=== PATIENT | female | born 1990 | race Two or more races ===

== ENCOUNTER 2020-05-25 13:47 | Emergency (ER) | payer BC, OTHER ==
[~2020-05-25] VITALS: Ht 157.5 cm; Wt 99.8 kg
[2020-05-25] MEDS ORDERED: DexAMETHasone SOD PHOS 10MG/1ML VIAL INJ IM ONE (14:45)
[2020-05-25] MEDS ORDERED: cefTRIAXone SOD 1,000 MG VL IM ONE (14:45)
[2020-05-25] MEDS ORDERED: BAMLANIVIMAB 700MG/200ML 200 ML IV ONE (17:00)
[2020-05-25 19:17] VITALS: BP 133/78
== END 2020-05-25 19:09 | disposition home or self-care (01) ==
LOC: ER 13:47
DX: U07.1 COVID-19 (principal); J45.21 Mild intermittent asthma with (acute) exacerbation
CPT/HCPCS: 71045; 96372; 99284; J0696; J1100; M0239; Q0239

== ENCOUNTER → 2020-06-02 | Emergency (ER) | payer BC ==
[~2020-06-02] VITALS: Ht 160 cm; Wt 99.8 kg
[2020-06-02 16:20] VITALS: BP 118/68
== END | disposition home or self-care (01) ==
LOC: ER 15:57
DX: U07.1 COVID-19 (principal); J12.82 Pneumonia due to coronavirus disease 2019; F41.9 Anxiety disorder, unspecified; J45.909 Unspecified asthma, uncomplicated
CPT/HCPCS: 71045

== ENCOUNTER 2020-06-28 11:59 | Emergency (ER) | payer BC ==
[~2020-06-28] VITALS: Ht 157.5 cm; Wt 95.3 kg
[2020-06-28] MEDS ORDERED: methylPREDNISolone SOD SUCC 125 MG/2 ML VL IV ONE (12:30)
[2020-06-28] MEDS ORDERED: IOHEXOL 350 MG/ML 100ML IJ ONE (13:25)
[2020-06-28 13:31] LABS: Basophils # (auto) 0 10 ^3/uL (0-0.2); Basophils % (auto) 0.7 % (0.0-2.0); Eosinophils # (auto) 0 10 ^3/uL (0-0.8); Eosinophils % (auto) 0.4 % (0.0-7.0); Hematocrit 40.1 % (36.0-46.0); Hemoglobin 13.9 g/dL (12.2-16.2); Lymphocytes # (auto) 1.7 10 ^3/uL (0.4-5.4); Lymphocytes % (auto) 34.3 % (10.0-50.0); Mean Corpuscular Hemoglobin 30.1 pg (28.0-32.0); Mean Corpuscular Hgb Conc. 34.6 g/dL (32.0-36.0); Mean Corpuscular Volume 87.1 fL (80.0-100.0); Monocytes # (auto) 0.4 10 ^3/uL (0-1.3); Monocytes % (auto) 7.4 % (0.0-12.0); Neutrophils # (auto) 2.8 10 ^3/uL (1.6-8.6); Neutrophils % (auto) 57.2 % (37.0-80.0); Nucleated Red Blood Cells % 0.1 %; Platelet Count (auto) 228 10^3/uL (140-450); Red Cell Distribution Width 13.8 % (11.8-14.3); White Blood Cell 4.9 10^3/uL (4.4-10.8)
[2020-06-28 13:43] LABS: Albumin 3.4 g/dL (3.4-5.0); Anion Gap 6 (5-15); Blood Urea Nitrogen 8 mg/dL (7-18); Calcium 8.4 mg/dL (8.5-10.1); Carbon Dioxide 25 mmol/L (21-32); Chloride 108 mmol/L (98-107); Glucose 92 mg/dL (74-106); Potassium 3.8 mmol/L (3.5-5.1); Sodium 139 mmol/L (136-145)
[2020-06-28 13:50] LABS: Alanine Aminotransferase 63 U/L (13-56); Alkaline Phosphatase 64 U/L (45-117); Aspartate Aminotransferase 34 U/L (15-37); Bilirubin, Total 0.6 mg/dL (0.2-1.0); GFR African American 159 mL/min; GFR Non-African American 131 mL/min; Total Protein 7.4 g/dL (6.4-8.2)
[2020-06-28 14:39] VITALS: BP 128/71
== END 2020-06-28 14:41 | disposition home or self-care (01) ==
LOC: ER 11:59
DX: F41.9 Anxiety disorder, unspecified (principal); R07.89 Other chest pain; Z20.822 Contact with and (suspected) exposure to COVID-19
CPT/HCPCS: 36415; 71275; 80053; 84484; 85025; 85379; 87426; 93005; 96374; 99285; J2930; Q9967

== ENCOUNTER 2022-10-27 09:22 | Emergency (ER) | payer BC, OTHER ==
[~2022-10-27] VITALS: Ht 160 cm; Wt 104.3 kg
[2022-10-27 09:42] VITALS: BP 121/55
[2022-10-27 10:36] LABS: Basophils # (auto) 0 10 ^3/uL (0-0.2); Basophils % (auto) 0.7 % (0.0-2.0); Eosinophils # (auto) 0 10 ^3/uL (0-0.8); Eosinophils % (auto) 0.5 % (0.0-7.0); Hemoglobin 14.3 g/dL (12.2-16.2); Lymphocytes # (auto) 1.7 10 ^3/uL (0.4-5.4); Lymphocytes % (auto) 34.6 % (10.0-50.0); Mean Corpuscular Hemoglobin 30.4 pg (28.0-32.0); Mean Corpuscular Hgb Conc. 34.1 g/dL (32.0-36.0); Mean Corpuscular Volume 89.2 fL (80.0-100.0); Monocytes # (auto) 0.2 10 ^3/uL (0-1.3); Monocytes % (auto) 4.6 % (0.0-12.0); Neutrophils # (auto) 2.9 10 ^3/uL (1.6-8.6); Neutrophils % (auto) 59.6 % (37.0-80.0); Red Blood Cells 4.71 10^6/uL (4.0-5.20); Red Cell Distribution Width 13.9 % (11.8-14.3); White Blood Cell 4.8 10^3/uL (4.4-10.8)
[2022-10-27 10:52] LABS: Urine Bacteria NONE SEEN /hpf (None Seen); Urine Blood 3+ /uL (Negative); Urine Mucus FEW (None Seen); Urine Specific Gravity 1.024 (1.001-1.035); Urine WBC 34 /hpf (0 - 5)
[2022-10-27 11:21] LABS: Calcium 8.9 mg/dL (8.5-10.1); Potassium 3.7 mmol/L (3.5-5.1)
[2022-10-27] MEDS ORDERED: KETOROLAC TROMETH 60MG/2ML VIAL IM ONE (11:30)
[2022-10-27] MEDS ORDERED: cefTRIAXone SOD 1,000 MG VL IM ONE (11:30)
[2022-10-27] MEDS ORDERED: LIDOCAINE 1% HCL (LOCAL ANESTH.) INJ 20ML MDV ONE (11:33)
[2022-10-27] MEDS ORDERED: CIPR-173 PO (11:48)
[2022-10-27] MEDS ORDERED: NAPR-746 PO (11:48)
== END 2022-10-27 11:59 | disposition home or self-care (01) ==
LOC: ER 09:22
DX: N39.0 Urinary tract infection, site not specified (principal); N83.202 Unspecified ovarian cyst, left side; N93.8 Other specified abnormal uterine and vaginal bleeding
CPT/HCPCS: 36415; 76856; 80048; 81001; 81025; 85025; 96372; 99285; J0696; J1885; J2001

== ENCOUNTER 2024-12-20 15:40 | Inpatient (IN) | payer OTHER ==
[~2024-12-20] VITALS: Ht 157.5 cm; Wt 91.0 kg
[~2024-12-20 15:40] MED LIST: CIPR-173 PO; NAPR-746 PO
[2024-12-20 16:26] LABS: Hematocrit 47.8 % (36.0-46.0); Hemoglobin 16.0 g/dL (12.2-16.2); Mean Corpuscular Hemoglobin 29.8 pg (28.0-32.0); Mean Corpuscular Volume 89.3 fL (80.0-100.0); Nucleated Red Blood Cells % 0.0 %
[2024-12-20] MEDS: SODIUM CHLORIDE 0.9% 1,000 ML IV ONE (16:28)
--- NOTE | 2024-12-20 16:32 | ED.PDOC ---
History of Present Illness HPI Comments 34-year-old female came to the ER stating that she has been having continuous diarrhea along with nausea vomiting for the past three days. Diarrhea mostly watery. Nausea vomiting diarrhea associated with abdominal pain. She just came back from [place] a week ago. She is unable to take any liquids or solid food. She does have a history of gallbladder surgery gastric sleeve. Denies any other symptoms. Chief Complaint: Diarrhea Time Seen by MD: 15:42 Primary Care Provider: BEN Romero Notes: Nurses Notes, Medications, Allergies Allergies: Coded Allergies: NO KNOWN ALLERGIES (Unverified , 05/25/20) Home Meds Active Scripts Ciprofloxacin Hcl (Cipro) 500 Mg Tab, 1 TAB PO BID, #20 TAB Prov:KAEAL VANG 10/27/22 Naproxen (Naproxen) 500 Mg Tab, 500 MG PO BID, #30 TAB Prov:KAELA VANG 10/27/22 Information Source: Patient, Emergency Med Personnel Mode of Arrival: EMS Severity: Moderate Timing: Days Duration: Since onset Past Medical History PAST MEDICAL HISTORY: Denies Surgical History: Cholecystectomy 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 History Family History Family History: Reviewed,noncontributory to illness Social History Smoker: Non-Smoker Alcohol: Denies ETOH Use Drugs: Denies Drug Use Lives In: Home Constitutional: denies: chills, diaphoresis, fatigue, fever, malaise, sweats, weakness, others EENTM: denies: blurred vision, double vision, ear bleeding, ear discharge, ear drainage, ear pain, ear ringing, eye pain, eye redness, hearing loss, mouth pain, mouth swelling, nasal discharge, nose bleeding, nose congestion, nose pain, photophobia, tearing, throat pain, throat swelling, voice changes, others Respiratory: denies: cough, hemoptysis, orthopnea, SOB at rest, shortness of breath, SOB with excertion, stridor, wheezing, others Cardiovascular: denies: chest pain, dizzy spells, diaphoresis, Dyspnea on exertion, edema, irregular heart beat, left arm pain, lightheadedness, palpitat ions, PND, syncope, others Gastrointestinal: reports: abdominal pain, diarrhea, nausea, vomiting; denies: abdomen distended, blood streaked bowels, constipated, dysphagia, difficulty swallowing, hematemesis, melena, poor appetite, poor fluid intake, rectal bleeding, rectal pain, others Genitourinary: denies: abnormal vagina bleeding, burning, dyspareunia, dysuria, flank pain, frequency, hematuria, incontinence, pain, , vagina discharge, urgency, others Neurological: denies: dizziness, fainting, headache, left sided numbness, left sided weakness, numbness, paresthesia, pre-existing deficit, right sided n umbness, right sided weakness, seizure, speech problems, tingling, tremors, weakness, others Musculoskeletal: denies: back pain, gout, joint pain, joint swelling, muscle pain, muscle stiffness, neck pain, others Integumetry: denies: bruises, change in color, change in hair/nails, dryness, laceration, lesions, lumps, rash, wounds, others Allergic/Immunocompromised: denies: Difficulty Healing, Frequent Infections, Hives, Itching, others Hematologic/Lymphatic: denies: anemia, blood clots, easy bleeding, easy bruising, swollen glands, others Endocrine: denies: excessive hunger, excessive sweating, excessive thirst, excessive urination, flushing, intolerance to cold, intolerance to heat, unexplained weight gain, unexplained weight loss, others Psychiatric: denies: anxiety, bipolar disorder, depression, hopeless, panic disorder, schizophrenia, sleepless, suicidal, others Physical Exam General Appearance: Moderate Distress HEENT: Normal ENT Inspection, Pharynx Normal, TMs Normal Neck: Full Range of Motion, Non-Tender, Normal, Normal Inspection Respiratory: Chest Non-Tender, Lungs Clear, No Accessory Muscle Use, No Respiratory Distress, Normal Breath Sounds Cardiovascular: No Edema, No JVD, No Murmur, No Gallop, Normal Peripheral Pulses, Regular Rate/Rhythm Breast Exam: Deferred Gastrointestinal: No Organomegaly, Non Tender, No Pulsatile Mass, Normal Bowel Sounds, Soft Genitalia: Deferred Pelvic: Deferred Rectal: Deferred Extremities: No calf tenderness, Normal capillary refill, Normal inspection, Normal range of motion, Non-tender, No pedal edema Musculoskeletal : Apperance: Normal Neurologic: Alert, icu clerk II-XII nml as Tested, No Motor Deficits, Normal Affect, Normal Mood, No Sensory Deficits Cerebellar Function: Normal Reflexes: Normal Skin: Dry, Normal Color, Warm Peripheral Pulses: 3+ Radial (R), 3+ Radial (L) Lymphatic: No Adenopathy Was a procedure done? Was a procedure done?: No Differential Dx Considerations may include: Gastroenteritis Electrolyte imbalance X-Ray, Labs, Meds, VS Vital Signs Date Time Temp Pulse Resp B/P (MAP) Pulse Ox O2 Delivery O2 Flow Rate FiO2 12/20/24 16:00 97.5 100 17 119/72 (88) 98 97.5 Lab Test 12/20/24 16:13 Range/Units White Blood Count Pending Red Blood Count Pending Hemoglobin Pending Hematocrit Pending Mean Corpuscular Volume Pending Mean Corpuscular Hemoglobin Pending Mean Corpuscular Hemoglobin Concent Pending Red Cell Distribution Width Pending Platelet Count Pending Mean Platelet Volume Pending Neutrophils (%) (Auto) Pending Lymphocytes (%) (Auto) Pending Monocytes (%) (Auto) Pending Basophils (%) (Auto) Pending Neutrophils # (Auto) Pending Lymphocytes # (Auto) Pending Monocytes # (Auto) Pending Sodium Level Pending Potassium Level Pending Chloride Level Pending Carbon Dioxide Level Pending Anion Gap Pending Blood Urea Nitrogen Pending Creatinine Pending Glomerular Filtration Rate Calc Pending BUN/Creatinine Ratio Pending Serum Glucose Pending Calcium Level Pending Patient alert. Complaining of diarrhea nausea vomiting. Vitals stable. Answering all questions. Establish intravenous access. Was given fluids. Was given Lomotil. Was given Zofran. Was given morphine. Possible colitis. Possible gastroenteritis. Explained to the patient. Continue monitoring. Time of 1ST Reevaluation: 16:30 Reevaluation 1ST: Unchanged Patient Education/Counseling: Diagnosis, Treatment, Prognosis Family Education/Counseling: No Family Present SEPSIS Sepsis Screen Date sepsis recognized/suspect: Dec 20, 2024 Time Sepsis recognized/suspect: 1600 Recent Procedure: No On Antibiotic Therapy: No Respiratory Rate >20: No Heart Rate >90: Yes Temp<36 C (96.8 F) or >38.3 C: No SBP <90 or MAP <65 mmHG: No New Acute Mental Status Change: No Is the patient on CPAP, BIPAP,: No Physician Orders Complete Blood Count (12/20/24 15:58) Urinalysis (12/20/24 15:58) Basic Metabolic Panel (12/20/24 15:58) Sodium Chloride 0.9% (12/20/24 16:00) Vital Signs Date Time Temp Pulse Resp B/P (MAP) Pulse Ox O2 Delivery O2 Flow Rate FiO2 12/20/24 16:00 97.5 100 17 119/72 (88) 98 97.5 Laboratory Tests Test 12/20/24 16:13 White Blood Count Pending Departure 1 Departure Time of Disposition: 16:31 Impression: Primary Impression: Nonspecific colitis Disposition: ADMITTED INPATIENT Admit to: Med Surg Condition: Guarded Critical Care Note Critical Care Time?: No Stability Stability form required: No Heart Score Heart Score: Heart Score Response (Comments) Value History N/A 0 EKG N/A 0 Age N/A 0 Risk Factors N/A 0 Troponin N/A 0 Total 0 JAVED GRIFFIN MD Dec 20, 2024 16:32
[2024-12-20] MEDS: ONDANSETRON HCL 4 MG/2 ML VIAL IV ONE (16:33)
[2024-12-20] MEDS: MORPHINE SULFATE 4 MG/ML SYR/VIAL IV ONE (16:34)
[2024-12-20 16:36] LABS: Chloride 106 mmol/L (98-107); Potassium 3.7 mmol/L (3.5-5.1); Sodium 138 mmol/L (136-145)
[2024-12-20 16:37] LABS: Anion Gap 10 (5-15); Carbon Dioxide 22 mmol/L (20-31)
[2024-12-20] MEDS: DIPHENOXYLATE W/ATROPINE 2.5 MG TAB PO ONE (16:37)
[2024-12-20 16:38] LABS: Calcium 9.8 mg/dL (8.7-10.4)
[2024-12-20 16:42] LABS: BUN/Creatinine Ratio 8.2 (10.0-20.0); Blood Urea Nitrogen 10 mg/dL (9-23)
[2024-12-20 16:57] LABS: Glucose 117 mg/dL (74-106)
[2024-12-20 18:03] LABS: Urine Protein, UAD 1+ (Negative)
--- NOTE | 2024-12-20 18:03 | DVH ---
EXAM DESCRIPTION: CT HEAD WITHOUT CONTRAST CLINICAL HISTORY: enteritis COMPARISON: None TECHNIQUE: Noncontrast CT head was performed. Coronal MPR images were generated. CTDI/ DLP = 57.8 mGy / 1021.2 m Gy.cm. Dose reduction technique with one or more of the following methods was performed: Automated exposure control, adjustment of the mA and/or kV according to patient size, use of iterative reconstruction te chnique. FINDINGS: No evidence of acute intracranial hemorrhage. No mass effect. No extra-axial collections of fluid or blood. The brain is normal in attenuation. The ventricles and sulci are normal in size for age. Clear basal cisterns. The calvarium is intact. The soft tissues are unremarkable. The mastoid air cells are clear. Partially imaged mucus retention cyst in the right maxillary sinus. Otherwise, the paranasal sinuses are clear. IMPRESSION: 1. No acute intracranial findings.
[2024-12-20 18:30] VITALS: PULSE 88; RESP 20; O2SAT 98
[2024-12-20] MEDS ORDERED: HYDROcodone-ACET 5/325MG TAB PO PRN (19:00)
[2024-12-20] MEDS ORDERED: DOCUSATE SOD 100 MG CAP PO PRN (19:00)
--- NOTE | 2024-12-20 19:08 | DVHHP2 ---
Admitting Diagnosis: Abdominal pain History of Present Illness 34-year-old female came to the ER stating that she has been having continuous diarrhea along with nausea vomiting for the past three days. Diarrhea mostly watery. Nausea vomiting diarrhea associated with abdominal pain. She just came back from [place] a week ago. She is unable to take any liquids or solid food. She does have a history of gallbladder surgery gastric sleeve. Denies any other symptoms. 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2 12/20/24 16:31 Room Air Physical Exam Generally-34 years old woman, overweight, sitting on chair. Mild distress HEENT-atraumatic, normocephalic Heart-regular rate and rhythm Lungs-Clear to auscultate bilaterally Abdomen soft, tender to palpate lower abdomen, nondistended Musculoskeletal-no edema cyanosis Neuro-AO x3, no focal deficit SEPSIS Sepsis Screen Date sepsis recognized/suspect: Dec 20, 2024 Time Sepsis recognized/suspect: 1817 Recent Procedure: No On Antibiotic Therapy: No Respiratory Rate >20: No Heart Rate >90: No Temp<36 C (96.8 F) or >38.3 C: No SBP <90 or MAP <65 mmHG: No New Acute Mental Status Change: No Is the patient on CPAP, BIPAP,: No Physician Orders Head Without Contrast (12/20/24 16:26) Admit (12/20/24 18:54) Code Status (12/20/24 18:54) Vital Signs .PER UNIT PROTOCOL (12/20/24 18:54) Review Orders With Adm. (12/20/24 18:54) Encourage Activity As Tolerate (12/20/24 18:54) Docusate Sodium Capsule (Colace Capsule) (12/20/24 19:00) Acetaminophen Tablet (Tylenol Tablet) (12/20/24 19:00) Notify Md Of Changes From Base (12/20/24 18:54) Advance Directive (12/20/24 18:54) Ct Ab Pel Wo Con-No Oral Or Iv (12/20/24 18:54) Patient Condition (12/20/24 18:54) Allergies (12/20/24 18:54) Hydrocodone-Acet 5/325mg Tab ([place] 5/32 (12/20/24 19:00) Hydromorphone Injection (Dilaudid Inject (12/20/24 19:00) Ondansetron Hcl (Zofran) (12/20/24 19:00) Lovenox 40mg (12/21/24 10:00) Test, Urine (12/20/24 18:54) Clear Liq Diet (12/21/24 Breakfast) Pantoprazole (Protonix) (12/20/24 19:00) Ceftriaxone Ivpb Rocephin (12/20/24 19:00) Metronidazole Ivpb Flagyl (12/20/24 19:00) Urine Bacterial Culture (12/20/24 19:04) Vital Signs Date Time Temp Pulse Resp B/P (MAP) Pulse Ox O2 Delivery O2 Flow Rate FiO2 12/20/24 18:17 98.2 88 20 104/66 (79) 99 98.2 12/20/24 17:04 70 17 109/62 12/20/24 16:34 103 18 111/74 12/20/24 16:31 103 16 97 Room Air 12/20/24 16:31 98.7 103 16 111/74 (86) 97 98.7 12/20/24 16:00 97.5 100 17 119/72 (88) 98 97.5 Laboratory Tests Test 12/20/24 16:13 White Blood Count 5.6 10^3/uL (4.4-10.8) Medications Medications Dose Ordered Sig/Jarod Route Start Time Stop Time Status Last Admin Dose Admin Diphenoxylate HCl/ Atropine 5 mg ONCE ONCE PO 12/20/24 16:30 12/20/24 16:31 DC 12/20/24 16:37 Metronidazole 100 ml @ 100 mls/hr ONCE ONCE IV 12/20/24 16:30 12/20/24 17:29 DC 12/20/24 16:33 Morphine Sulfate 4 mg ONCE ONCE IV 12/20/24 16:30 12/20/24 16:31 DC 12/20/24 16:34 Ondansetron HCl 4 mg ONCE ONCE IV 12/20/24 16:30 12/20/24 16:31 DC 12/20/24 16:33 Sodium Chloride 1,000 ml @ 1,000 mls/hr Q1H ONCE IV 12/20/24 16:00 12/20/24 16:59 DC 12/20/24 16:28 Results Labs Test 12/20/24 16:39 12/20/24 16:13 Range/Units Urine Color Yellow Yellow Urine Clarity Turbid H Clear Urine pH 5.5 5.0-9.0 Urine Specific [place] 1.031 1.001-1.035 Urine Protein 1+ H Negative Urine Ketones Negative Negative Urine Blood 1+ H Negative /uL Urine Nitrite Negative Negative Urine Bilirubin Negative Negative Urine Urobilinogen Normal Negative mg/dL Urine Leukocyte Esterase 2+ Negative /uL Urine RBC 13 0 - 4 /hpf Urine Microscopic WBC 27 H 0-5 /HPF Urine Squamous Epithelial Cells Mod <5 /hpf Urine Bacteria None seen None Seen /hpf Urine Hyaline Casts Many 0 - 2 /lpf Urine Mucus Few None Seen Urine Glucose Normal Normal mg/dL White Blood Count 5.6 4.4-10.8 10^3/uL Red Blood Count 5.36 H 4.0-5.20 10^6/uL Hemoglobin 16.0 12.2-16.2 g/dL Hematocrit 47.8 H 36.0-46.0 % Mean Corpuscular Volume 89.3 80.0-100.0 fL Mean Corpuscular Hemoglobin 29.8 28.0-32.0 pg Mean Corpuscular Hemoglobin Concent 33.4 32.0-36.0 g/dL Red Cell Distribution Width 12.7 11.8-14.3 % Platelet Count 186 140-450 10^3/uL Mean Platelet Volume 8.2 6.9-10.8 fL Neutrophils (%) (Auto) 83.6 H 37.0-80.0 % Lymphocytes (%) (Auto) 11.4 10.0-50.0 % Monocytes (%) (Auto) 4.8 0.0-12.0 % Eosinophils (%) (Auto) 0.0 0.0-7.0 % Basophils (%) (Auto) 0.2 0.0-2.0 % Neutrophils # (Auto) 4.6 1.6-8.6 10 ^3/uL Lymphocytes # (Auto) 0.6 0.4-5.4 10 ^3/uL Monocytes # (Auto) 0.3 0-1.3 10 ^3/uL Eosinophils # (Auto) 0 0-0.8 10 ^3/uL Basophils # (Auto) 0 0-0.2 10 ^3/uL Nucleated Red Blood Cells 0.0 % Sodium Level 138 136-145 mmol/L Potassium Level 3.7 3.5-5.1 mmol/L Chloride Level 106 98-107 mmol/L Carbon Dioxide Level 22 20-31 mmol/L Anion Gap 10 5-15 Blood Urea Nitrogen 10 9-23 mg/dL Creatinine 1.22 H 0.550-1.02 mg/dL Glomerular Filtration Rate Calc 59 >90 mL/min BUN/Creatinine Ratio 8.2 L 10.0-20.0 Serum Glucose 117 H 74-106 mg/dL Calcium Level 9.8 8.7-10.4 mg/dL Primary Diagnosis Acute cystitis Diarrhea rule out intra-abdominal infection Plan Check CT abdomen and pelvis to assess for intra-abdominal infection Start ceftriaxone, Flagyl for urinary tract infection and possible intra-abdominal infection IV fluids Urine culture, blood culture Pain medication Antiemetic Full code Regular diet For DVT prophylaxis PPI for GI prophylaxis Plan discussed with: Patient Problems List: (1) Acute UTI (urinary tract infection) Status: Acute (2) Nonspecific colitis Status: Acute Date of Service: Dec 20, 2024 Billing Provider: MAGO QUIROZ MD Common Visit Codes: [id number] INP/OBS CARE (MOD) MGAO QUIROZ MD Dec 20, 2024 19:08
--- NOTE | 2024-12-20 19:33 | DVH ---
Exam: CT CT AB PEL WO CON-NO ORAL OR IV History: r/o intra-abdominal infection Comparison Study: None Technique: Multidetector spiral CT of the abdomen was performed from lung bases to pubic symphysis. Imaging was performed without IV contrast. Axial, coronal and sagittal multiplanar reformats were ob tained from the axial data set by the technologist. Radiation Dose : 1. Abdomen/Pelvis: CTDIvol 23 mGy, DLP 1281 mGy*cm. Findings: Evaluation of solid organs is limited due to lack of intravenous contrast use. Lung Bases: No acute or significant lung base finding. Normal heart size. No pleural or pericardial effusion. Liver: The liver is normal in size. No focal lesions. Gallbladder and Biliary Tree: Gallbladder is surgically absent. Spleen: Unremarkable Pancreas: The pancreas is grossly normal in appearance. Adrenal Glands: Unremarkable Kidneys: Kidneys are grossly normal without calculi or hydronephrosis. Bladder: Grossly unremarkable for degree of distention. Bowel: The stomach is grossly normal in appearance. Minimal wall thickening of the distal colon may r eflect underdistention versus mild colitis. The appendix is not visualized; however, no secondary fi ndings of acute appendicitis identified. Ascites: Absent Lymphadenopathy: No mesenteric, retroperitoneal or periportal lymphadenopathy. Abdominal Wall and Mesentery: Unremarkable. Vasculature: The visualized abdominal aorta is normal in size and caliber. Evaluation of abdominal a nd pelvic vessels is limited due to lack of intravenous contrast. Pelvic Organs: Unremarkable Musculoskeletal: No aggressive focal bony lesions, acute fractures or dislocation. IMPRESSION: 1. Minimal wall thickening of the distal colon may reflect underdistention versus mild colitis. Radiation optimization: All CT scans at this facility use at least one of these dose optimization danielle hniques: automated exposure control mA and/or kV adjustment per patient size (includes targeted exam s where dose is matched to clinical indication) or iterative reconstruction.
[2024-12-20] MEDS: cefTRIAXone 1GM/50ML D5W 50 ML IV SCH (20:36)
[2024-12-20] MEDS: ONDANSETRON HCL 4 MG/2 ML VIAL IV PRN (20:46)
[2024-12-20] MEDS: PANTOPRAZOLE 40 MG/10 ML VIAL INJ IV ONE (20:46)
[2024-12-20] MEDS: HYDROmorphone HCL 2 MG/ML VL/or syr IV PRN (20:47)
[2024-12-20 20:50] VITALS: PULSE 84; RESP 18; O2SAT 97
[2024-12-20 22:50] VITALS: BP 128/78; PULSE 83; RESP 16; TEMP 97.7; O2SAT 95
[2024-12-21 00:47] VITALS: BP 102/68; PULSE 70; RESP 18; TEMP 97.8; O2SAT 96
[2024-12-21 04:44] VITALS: BP 104/63; PULSE 78; RESP 16; TEMP 98; O2SAT 97
[2024-12-21] MEDS: ENOXAPARIN SOD 40 MG/0.4 ML SYRINGE SC SCH (08:39)
[2024-12-21] MEDS: LACTATED RINGER'S 1,000 ML IV ONE (08:39)
[2024-12-21] MEDS: ACETAMINOPHEN 325 MG TAB PO PRN (08:46)
[2024-12-21] MEDS: diphenhdrAMINE HCL 50 MG/1 ML VL IV PRN (08:47)
[2024-12-21 09:00] VITALS: BP 104/62; PULSE 75; RESP 16; TEMP 98; O2SAT 97
--- NOTE | 2024-12-21 10:14 | DVHPN2 ---
Subjective Decreasing abdominal pain; still with diarrhea; mild nausea; no vomiting Reviewed: Care Plan, H&P, Labs, Medications, Previous Orders, Radiology Changes from previous H/P or p: Changes Objective Vitals Vital Signs Date Time Temp Pulse Resp B/P (MAP) Pulse Ox O2 Delivery O2 Flow Rate FiO2 12/21/24 09:00 98.0 75 16 104/62 (76) 97 98.0 12/20/24 20:50 Room Air* 0 21 Intake/Output Intake and Output 12/21/24 07:00 Intake Total 340 ml Balance 340 ml Intake Oral 240 ml IV Total 100 ml # Voids 2 General Appearance: Alert, Oriented X3, Cooperative, No acute distress HEENT: Atraumatic Lungs: Clear to auscultation, Normal air movement Cardiovascular: Regular rate, Normal S1, Normal S2 Abdomen: Normal bowel sounds, Soft, Other (Mild diffuse tenderness) Extremities: No edema Neuro: Normal speech, Cranial nerves 3-12 NL Psych/Mental Status: Mental status NL, Mood NL Medications Current Medications Medications Dose Ordered Sig/Jarod Route Start Time Stop Time Status Last Admin Dose Admin Docusate Sodium 100 mg BIDPRN PRN PO 12/20/24 19:00 Acetaminophen 650 mg Q6HP PRN PO 12/20/24 19:00 12/21/24 08:46 650 MG Acetaminophen/ Hydrocodone Bitart 1 tab Q4HP PRN PO 12/20/24 19:00 Hydromorphone HCl 0.5 mg Q4HP PRN IV 12/20/24 19:00 12/20/24 20:47 0.5 MG Ondansetron HCl 4 mg Q4HP PRN IV 12/20/24 19:00 12/20/24 20:46 4 MG Enoxaparin Sodium 40 mg DAILY SC 12/21/24 10:00 Ceftriaxone Sodium 50 ml @ 100 mls/hr DAILY IV 12/20/24 19:00 12/21/24 08:35 100 MLS/HR Metronidazole 100 ml @ 100 mls/hr Q8H IV 12/20/24 19:00 12/21/24 02:47 100 MLS/HR Diphenhydramine HCl 25 mg ONCE PRN IV 12/21/24 08:30 12/21/24 08:47 25 MG Laboratory Results Laboratory Tests 12/20/24 16:13 Chemistry Test 12/20/24 16:13 Calcium Level 9.8 mg/dL (8.7-10.4) Urinalysis Test 12/20/24 16:39 Urine Color Yellow (Yellow) Urine Clarity Turbid (Clear) H Urine pH 5.5 (5.0-9.0) Urine Specific [place] 1.031 (1.001-1.035) Urine Protein 1+ (Negative) H Urine Ketones Negative (Negative) Urine Blood 1+ /uL (Negative) H Urine Nitrite Negative (Negative) Urine Bilirubin Negative (Negative) Urine Urobilinogen Normal mg/dL (Negative) Urine Leukocyte Esterase 2+ /uL (Negative) Urine RBC 13 /hpf (0 - 4) Urine Microscopic WBC 27 /HPF (0-5) H Urine Squamous Epithelial Cells Mod /hpf (<5) Urine Bacteria None seen /hpf (None Seen) Urine Hyaline Casts Many /lpf (0 - 2) Urine Mucus Few (None Seen) Urine Glucose Normal mg/dL (Normal) Urine Test Negative (Negative) Microbiology Microbiology Date/Time Source Procedure Growth Status 12/20/24 20:31 Stool Stool Culture - Preliminary Resulted 12/20/24 20:31 Stool Shiga Toxin I & II Pending Resulted 12/20/24 16:39 Voided Urine Urine Culture - Preliminary Resulted Labs and/or images reviewed: Labs reviewed by me, Image(s) reviewed by me Assessment/Plan Assessment/Plan A 34-year-old obese female patient; with no past medical history; presented to the emergency department with abdominal pain, nausea, and vomiting. #Suspected colitis; to advance diet as tolerated; now on clear liquid diet; continue IV antibiotics; reviewed abdominal/pelvis CT and head CT; continue IV fluids; stool workup: Negative so far; continue monitoring #Suspected acute cystitis; urinalysis showing infection; urine cultures pending; no growth for blood cultures; continue IV antibiotics; continue monitoring #AGUSTÍN; most likely vasomotor nephropathy; avoid nephrotoxic agents; continue IV fluids; continue monitoring #Obesity; counseled the patient importance of adopting healthy lifestyle with diet and exercise in order to lose weight; continue monitoring Goals of care discussed with the patient and her for 20 minutes; full code Late Entry. This medical document was created using an electronic medical record system with computerized dictation system. Although this document has been carefully reviewed, there might still be some phonetic and typographical errors. These areas are purely typographical due to imperfections of the software programs, and do not reflect any compromise in the patient's medical care. Plan discussed with: Patient, Spouse, Other (Nurse) Date of Service: Dec 21, 2024 Billing Provider: BRANDON SHAH MD Common Visit Codes: [id number] INP/OBS CARE(HIGH) Secondary Visit Codes: [id number] CARE PLAN 30 MINUTES (20 minutes) BRANDON SHAH MD Dec 21, 2024 10:14
[2024-12-21 12:18] LABS: Hematocrit 40.3 % (36.0-46.0); Hemoglobin 13.8 g/dL (12.2-16.2); Mean Corpuscular Hemoglobin 30.2 pg (28.0-32.0); Mean Corpuscular Volume 88.3 fL (80.0-100.0); Nucleated Red Blood Cells % 0.0 %
[2024-12-21 12:30] VITALS: BP 107/65; PULSE 87; RESP 16; TEMP 98.4; O2SAT 97
[2024-12-21 12:39] LABS: Albumin 4.0 g/dL (3.2-4.8); Alkaline Phosphatase 89 U/L (46-116); Anion Gap 8 (5-15); Bilirubin, Total 0.5 mg/dL (0.2-1.0); Calcium 9.1 mg/dL (8.7-10.4); Carbon Dioxide 22 mmol/L (20-31); Chloride 108 mmol/L (98-107); Glucose 82 mg/dL (74-106); Sodium 138 mmol/L (136-145); Total Protein 6.4 g/dL (5.7-8.2)
[2024-12-21 12:43] LABS: BUN/Creatinine Ratio 11.0 (10.0-20.0)
[2024-12-21 12:45] LABS: Alanine Aminotransferase 47 U/L (7-40); Blood Urea Nitrogen 10 mg/dL (9-23); Potassium 4.5 mmol/L (3.5-5.1)
[2024-12-21 16:30] VITALS: BP 105/72; PULSE 71; RESP 18; TEMP 98.2; O2SAT 99
[2024-12-21 21:00] VITALS: BP 92/61; PULSE 74; RESP 18; TEMP 98.3; O2SAT 98
[2024-12-21] MEDS: TEMAZEPAM 15 MG CAP PO ONE (22:17)
[2024-12-22] VITALS (7 sets, daily range): BP systolic 99–123; BP diastolic 58–78; PULSE 59–74; RESP 16–18; TEMP 97.8–98.2; O2SAT 96–100
--- NOTE | 2024-12-22 06:22 | DVHPN2 ---
Subjective Decreasing abdominal pain and diarrhea; could not tolerate full liquid diet Reviewed: Care Plan, H&P, Labs, Medications, Previous Orders, Radiology Changes from previous H/P or p: Changes Objective Vitals Vital Signs Date Time Temp Pulse Resp B/P (MAP) Pulse Ox O2 Delivery O2 Flow Rate FiO2 12/22/24 05:00 98.1 73 18 107/68 (81) 96 98.1 12/21/24 20:00 Room Air* 0 21 Intake/Output Intake and Output 12/22/24 07:00 Intake Total 1050 ml Balance 1050 ml Intake Oral 850 ml IV Total 200 ml # Voids 2 # Bowel Movements 4 General Appearance: Alert, Oriented X3, Cooperative, No acute distress HEENT: Atraumatic Lungs: Clear to auscultation, Normal air movement Cardiovascular: Regular rate, Normal S1, Normal S2 Abdomen: Normal bowel sounds, Soft, Other (Mild diffuse tenderness) Extremities: No edema Neuro: Normal speech, Cranial nerves 3-12 NL Psych/Mental Status: Mental status NL, Mood NL Medications Current Medications Medications Dose Ordered Sig/Jarod Route Start Time Stop Time Status Last Admin Dose Admin Docusate Sodium 100 mg BIDPRN PRN PO 12/20/24 19:00 Acetaminophen 650 mg Q6HP PRN PO 12/20/24 19:00 12/21/24 08:46 650 MG Acetaminophen/ Hydrocodone Bitart 1 tab Q4HP PRN PO 12/20/24 19:00 Hydromorphone HCl 0.5 mg Q4HP PRN IV 12/20/24 19:00 12/20/24 20:47 0.5 MG Ondansetron HCl 4 mg Q4HP PRN IV 12/20/24 19:00 12/21/24 20:44 4 MG Enoxaparin Sodium 40 mg DAILY SC 12/21/24 10:00 Ceftriaxone Sodium 50 ml @ 100 mls/hr DAILY IV 12/20/24 19:00 12/21/24 08:35 100 MLS/HR Metronidazole 100 ml @ 100 mls/hr Q8H IV 12/21/24 20:00 12/22/24 03:33 100 MLS/HR Laboratory Results Laboratory Tests 12/21/24 12:05 Chemistry Test 12/21/24 12:05 Albumin 4.0 g/dL (3.2-4.8) Calcium Level 9.1 mg/dL (8.7-10.4) Total Protein 6.4 g/dL (5.7-8.2) LFT Test 12/21/24 12:05 Alanine Aminotransferase (ALT) 47 U/L (7-40) H Alkaline Phosphatase 89 U/L (46-116) Aspartate Amino Transferase (AST) 68 U/L (13-40) H Total Bilirubin 0.5 mg/dL (0.2-1.0) Urinalysis Test 12/20/24 16:39 Urine Color Yellow (Yellow) Urine Clarity Turbid (Clear) H Urine pH 5.5 (5.0-9.0) Urine Specific [place] 1.031 (1.001-1.035) Urine Protein 1+ (Negative) H Urine Ketones Negative (Negative) Urine Blood 1+ /uL (Negative) H Urine Nitrite Negative (Negative) Urine Bilirubin Negative (Negative) Urine Urobilinogen Normal mg/dL (Negative) Urine Leukocyte Esterase 2+ /uL (Negative) Urine RBC 13 /hpf (0 - 4) Urine Microscopic WBC 27 /HPF (0-5) H Urine Squamous Epithelial Cells Mod /hpf (<5) Urine Bacteria None seen /hpf (None Seen) Urine Hyaline Casts Many /lpf (0 - 2) Urine Mucus Few (None Seen) Urine Glucose Normal mg/dL (Normal) Urine Test Negative (Negative) Microbiology Microbiology Date/Time Source Procedure Growth Status 12/20/24 20:31 Stool Clostridium difficile Toxin Assay - Final Complete 12/20/24 20:02 Blood Blood Culture - Preliminary NO GROWTH AFTER 24 HOURS OF INCUBATION. Resulted 12/20/24 16:39 Voided Urine Urine Culture - Preliminary Resulted Labs and/or images reviewed: Labs reviewed by me, Image(s) reviewed by me Assessment/Plan Assessment/Plan A 34-year-old obese female patient; with no past medical history; presented to the emergency department with abdominal pain, nausea, and vomiting. # Suspected colitis; to advance diet as tolerated; continue IV antibiotics; reviewed abdominal/pelvis CT and head CT; continue IV fluids; stool workup: Negative so far; continue monitoring # Suspected acute cystitis; urinalysis showing infection; urine cultures pending; no growth for blood cultures; continue IV antibiotics; continue monitoring # AGUSTÍN; most likely vasomotor nephropathy; avoid nephrotoxic agents; continue IV fluids; continue monitoring # Obesity; counseled the patient importance of adopting healthy lifestyle with diet and exercise in order to lose weight; continue monitoring Late Entry. This medical document was created using an electronic medical record system with computerized dictation system. Although this document has been carefully reviewed, there might still be some phonetic and typographical errors. These areas are purely typographical due to imperfections of the software programs, and do not reflect any compromise in the patient's medical care. Plan discussed with: Patient, Other (Nurse) My Orders Orders - BRANDON SHAH MD Procedure Category Date Status Time Metronidazole PHA 12/21/24 In Process 500mg/100ml (Flagyl 20:00 Basic Metabolic Panel LAB 12/22/24 Logged 04:00 Basic Metabolic Panel LAB 12/23/24 Verified 04:00 Full Liq Diet DIET 12/22/24 Transmitted Breakfast Date of Service: Dec 22, 2024 Billing Provider: BRANDON SHAH MD Common Visit Codes: [id number] INP/OBS CARE(HIGH) BRANDON SHAH MD Dec 22, 2024 06:22
[2024-12-22 07:50] LABS: Potassium 3.7 mmol/L (3.5-5.1); Sodium 142 mmol/L (136-145)
[2024-12-22 07:51] LABS: Anion Gap 7 (5-15); Calcium 9.0 mg/dL (8.7-10.4); Carbon Dioxide 24 mmol/L (20-31)
[2024-12-22 07:53] LABS: Chloride 111 mmol/L (98-107)
[2024-12-22 07:56] LABS: BUN/Creatinine Ratio 11.3 (10.0-20.0); Blood Urea Nitrogen 9 mg/dL (9-23); Glucose 84 mg/dL (74-106)
[2024-12-22] MEDS ORDERED: HYDROcodone-ACET 5/325MG TAB PO PRN (12:00)
[2024-12-22] MEDS: SODIUM CHLORIDE 0.9% 1,000 ML IV SCH (12:33)
[2024-12-22 18:19] LABS: Urine Protein, UAD 1+ (Negative)
[2024-12-22] MEDS: diphenhdrAMINE HCL 25 MG CAP PO PRN (21:53)
[2024-12-22] MEDS: MELATONIN 5 MG TAB PO ONE (22:00)
[2024-12-22] MEDS: diphenhdrAMINE HCL 25 MG CAP PO ONE (23:59)
[2024-12-23 01:00] VITALS: BP 105/68; PULSE 58; RESP 17; TEMP 97.9; O2SAT 98
[2024-12-23 05:00] VITALS: BP 91/52; PULSE 72; RESP 17; TEMP 98.6; O2SAT 95
[2024-12-23 08:00] VITALS: PULSE 72; RESP 17; O2SAT 97
[2024-12-23 09:00] VITALS: BP 96/64; PULSE 72; RESP 17; TEMP 97.9; O2SAT 96
[2024-12-23 09:45] LABS: Potassium 3.6 mmol/L (3.5-5.1); Sodium 142 mmol/L (136-145)
[2024-12-23 09:46] LABS: Anion Gap 10 (5-15); Carbon Dioxide 22 mmol/L (20-31)
[2024-12-23 09:47] LABS: Calcium 8.7 mg/dL (8.7-10.4); Chloride 110 mmol/L (98-107)
[2024-12-23 09:51] LABS: BUN/Creatinine Ratio 10.8 (10.0-20.0); Glucose 86 mg/dL (74-106)
[2024-12-23 09:57] LABS: Blood Urea Nitrogen 7 mg/dL (9-23)
--- NOTE | 2024-12-23 11:40 | DVHPN2 ---
Subjective Feeling much better this morning with no abdominal pain/nausea/vomiting/diarrhea Reviewed: Care Plan, H&P, Labs, Medications, Previous Orders, Radiology Changes from previous H/P or p: Changes Objective Vitals Vital Signs Date Time Temp Pulse Resp B/P (MAP) Pulse Ox O2 Delivery O2 Flow Rate FiO2 12/23/24 09:00 97.9 72 17 96/64 (75) 96 97.9 12/22/24 20:00 Room Air* 0 21 Intake/Output Intake and Output 12/23/24 06:59 Intake Total 1800 ml Balance 1800 ml Intake Oral 450 ml IV Total 1350 ml # Voids 3 # Bowel Movements 5 General Appearance: Alert, Oriented X3, Cooperative, No acute distress HEENT: Atraumatic Lungs: Clear to auscultation, Normal air movement Cardiovascular: Regular rate, Normal S1, Normal S2 Abdomen: Normal bowel sounds, Soft, No tenderness Extremities: No edema Neuro: Normal speech, Cranial nerves 3-12 NL Psych/Mental Status: Mental status NL, Mood NL Medications Current Medications Medications Dose Ordered Sig/Jarod Route Start Time Stop Time Status Last Admin Dose Admin Docusate Sodium 100 mg BIDPRN PRN PO 12/20/24 19:00 Acetaminophen 650 mg Q6HP PRN PO 12/20/24 19:00 12/21/24 08:46 650 MG Ondansetron HCl 4 mg Q4HP PRN IV 12/20/24 19:00 12/22/24 20:40 4 MG Enoxaparin Sodium 40 mg DAILY SC 12/21/24 10:00 Ceftriaxone Sodium 50 ml @ 100 mls/hr DAILY IV 12/20/24 19:00 12/23/24 10:58 100 MLS/HR Metronidazole 100 ml @ 100 mls/hr Q8H IV 12/21/24 20:00 12/23/24 04:17 100 MLS/HR Acetaminophen/ Hydrocodone Bitart 1 tab Q4HP PRN PO 12/22/24 12:00 Diphenhydramine HCl 25 mg DAILY PRN PO 12/22/24 12:00 12/22/24 21:53 25 MG Sodium Chloride 1,000 ml @ 75 mls/hr [id number] IV 12/22/24 12:00 12/23/24 01:26 75 MLS/HR Laboratory Results Laboratory Tests 12/21/24 12:05 12/23/24 08:53 Chemistry Test 12/23/24 08:53 Calcium Level 8.7 mg/dL (8.7-10.4) Urinalysis Test 12/20/24 16:39 12/22/24 15:25 Urine Hyaline Casts Many /lpf (0 - 2) Urine Test Negative (Negative) Urine Color Yellow (Yellow) Urine Clarity Turbid (Clear) H Urine pH 6.0 (5.0-9.0) Urine Specific [place] 1.038 (1.001-1.035) Urine Protein 1+ (Negative) H Urine Ketones 1+ (Negative) H Urine Blood Trace /uL (Negative) H Urine Nitrite Negative (Negative) Urine Bilirubin Negative (Negative) Urine Urobilinogen Normal mg/dL (Negative) Urine Leukocyte Esterase 1+ /uL (Negative) Urine RBC 3 /hpf (0 - 4) Urine Microscopic WBC 7 /HPF (0-5) H Urine Squamous Epithelial Cells Few /hpf (<5) Urine Bacteria None seen /hpf (None Seen) Urine Mucus Moderate (None Seen) Urine Glucose Normal mg/dL (Normal) Microbiology Microbiology Date/Time Source Procedure Growth Status 12/20/24 20:31 Stool Clostridium difficile Toxin Assay - Final Complete 12/20/24 20:02 Blood Blood Culture - Preliminary NO GROWTH AFTER 48 HOURS OF INCUBATION. Resulted 12/20/24 16:39 Voided Urine Urine Culture - Preliminary Resulted Labs and/or images reviewed: Labs reviewed by me, Image(s) reviewed by me Assessment/Plan Assessment/Plan A 34-year-old obese female patient; with no past medical history; presented to the emergency department with abdominal pain, nausea, and vomiting. #Suspected colitis; treated with IV antibiotics; reviewed abdominal/pelvis CT and head CT; continue IV fluids; stool workup: Negative; was not discharged on oral antibiotics as she finished three days of IV antibiotics; to follow up with Dr. Shah on Saturday in discharge clinic #Suspected acute cystitis; urinalysis showing infection; urine cultures with normal teresa; no growth for blood cultures; finished three days of IV antibiotics; to follow up with Dr. Shah on Saturday in discharge clinic #AGUSTÍN; most likely vasomotor nephropathy; avoid nephrotoxic agents; received IV fluids; resolved; to follow up with Dr. Shah on Saturday in discharge clinic #Obesity; counseled the patient importance of adopting healthy lifestyle with diet and exercise in order to lose weight; to follow up with Dr. Shah on Saturday in discharge clinic Late Entry. This medical document was created using an electronic medical record system with computerized dictation system. Although this document has been carefully reviewed, there might still be some phonetic and typographical errors. These areas are purely typographical due to imperfections of the software programs, and do not reflect any compromise in the patient's medical care. Plan discussed with: Patient, Other (Nurse) My Orders Orders - BRANDON SHAH MD Procedure Category Date Status Time Hydrocodone-Acet PHA 12/22/24 In Process 5/325mg Tab ([place] 12:00 Regular Diet DIET 12/22/24 Transmitted Lunch Diphenhdramine PHA 12/22/24 In Process Capsule (Benadryl 12:00 Sodium Chloride 0.9% PHA 12/22/24 In Process 12:00 Date of Service: Dec 23, 2024 Billing Provider: BRANDON SHAH MD Common Visit Codes: [id number] INP/OBS CARE(MOD) BRANDON SHAH MD Dec 23, 2024 11:40
--- NOTE | 2024-12-23 11:43 | DVHDS2 ---
Discharge Summary Date of Admission Dec 20, 2024 at 18:54 Date of Discharge: Dec 23, 2024 Admitting Diagnosis Abdominal pain with nausea and vomiting Labs/Diagnostic Data: Laboratory Results Test 12/23/24 08:53 12/22/24 15:25 12/21/24 12:05 12/20/24 20:31 Sodium Level 142 mmol/L (136-145) Potassium Level 3.6 mmol/L (3.5-5.1) Chloride Level 110 mmol/L (98-107) Carbon Dioxide Level 22 mmol/L (20-31) Anion Gap 10 (5-15) Blood Urea Nitrogen 7 mg/dL (9-23) Creatinine 0.65 mg/dL (0.550-1.02) Glomerular Filtration Rate Calc 118 mL/min (>90) BUN/Creatinine Ratio 10.8 (10.0-20.0) Serum Glucose 86 mg/dL (74-106) Calcium Level 8.7 mg/dL (8.7-10.4) Urine Color Yellow (Yellow) Urine Clarity Turbid (Clear) Urine pH 6.0 (5.0-9.0) Urine Specific [place] 1.038 (1.001-1.035) Urine Protein 1+ (Negative) Urine Ketones 1+ (Negative) Urine Blood Trace /uL (Negative) Urine Nitrite Negative (Negative) Urine Bilirubin Negative (Negative) Urine Urobilinogen Normal mg/dL (Negative) Urine Leukocyte Esterase 1+ /uL (Negative) Urine RBC 3 /hpf (0 - 4) Urine Microscopic WBC 7 /HPF (0-5) Urine Squamous Epithelial Cells Few /hpf (<5) Urine Bacteria None seen /hpf (None Seen) Urine Mucus Moderate (None Seen) Urine Glucose Normal mg/dL (Normal) White Blood Count 4.4 10^3/uL (4.4-10.8) Red Blood Count 4.56 10^6/uL (4.0-5.20) Hemoglobin 13.8 g/dL (12.2-16.2) Hematocrit 40.3 % (36.0-46.0) Mean Corpuscular Volume 88.3 fL (80.0-100.0) Mean Corpuscular Hemoglobin 30.2 pg (28.0-32.0) Mean Corpuscular Hemoglobin Concent 34.2 g/dL (32.0-36.0) Red Cell Distribution Width 12.5 % (11.8-14.3) Platelet Count 157 10^3/uL (140-450) Mean Platelet Volume 8.4 fL (6.9-10.8) Neutrophils (%) (Auto) 61.8 % (37.0-80.0) Lymphocytes (%) (Auto) 26.5 % (10.0-50.0) Monocytes (%) (Auto) 9.9 % (0.0-12.0) Eosinophils (%) (Auto) 1.5 % (0.0-7.0) Basophils (%) (Auto) 0.3 % (0.0-2.0) Neutrophils # (Auto) 2.7 10 ^3/uL (1.6-8.6) Lymphocytes # (Auto) 1.2 10 ^3/uL (0.4-5.4) Monocytes # (Auto) 0.4 10 ^3/uL (0-1.3) Eosinophils # (Auto) 0.1 10 ^3/uL (0-0.8) Basophils # (Auto) 0 10 ^3/uL (0-0.2) Nucleated Red Blood Cells 0.0 % Total Bilirubin 0.5 mg/dL (0.2-1.0) Aspartate Amino Transferase (AST) 68 U/L (13-40) Alanine Aminotransferase (ALT) 47 U/L (7-40) Alkaline Phosphatase 89 U/L (46-116) Total Protein 6.4 g/dL (5.7-8.2) Albumin 4.0 g/dL (3.2-4.8) Stool for White Cells Few Test 12/20/24 16:39 Urine Hyaline Casts Many /lpf (0 - 2) Urine Test Negative (Negative) Other Laboratory Tests 12/23/24 08:53 12/21/24 12:05 Brief Hx & Hospital Course: A 34-year-old obese female patient; with no past medical history; presented to the emergency department with abdominal pain, nausea, and vomiting. #Suspected colitis; treated with IV antibiotics; reviewed abdominal/pelvis CT and head CT; continue IV fluids; stool workup: Negative; was not discharged on oral antibiotics as she finished three days of IV antibiotics; to follow up with Dr. Shah on Saturday in discharge clinic #Suspected acute cystitis; urinalysis showing infection; urine cultures with normal teersa; no growth for blood cultures; finished three days of IV antibiotics; to follow up with Dr. Shah on Saturday in discharge clinic #AGUSTÍN; most likely vasomotor nephropathy; avoid nephrotoxic agents; received IV fluids; resolved; to follow up with Dr. Shah on Saturday in discharge clinic #Obesity; counseled the patient importance of adopting healthy lifestyle with diet and exercise in order to lose weight; to follow up with Dr. Shah on Saturday in discharge clinic Late Entry. This medical document was created using an electronic medical record system with computerized dictation system. Although this document has been carefully reviewed, there might still be some phonetic and typographical errors. These areas are purely typographical due to imperfections of the software programs, and do not reflect any compromise in the patient's medical care. Condition at Discharge: Good Final Diagnosis/Problems List Colitis Discharge Disposition: Home Discharge Instruct/Medications Diet: Regular Activity: No Restrictions, As Tolerated Follow Up/Referral: Dr. Shah/Dr. Duncan on Saturday12/28/2024 at 01:30 [place] [facility] [place] [facility] [place] Given work leave note. Medications: None No Active Prescriptions or Reported Meds Discharge Statement: "Patient was advised to return to the ER or call 911 if any headaches, dizziness, shortness of breath, chest pain, abdominal pain, bleeding, fevers, or worsening of medical condition. Patient was counseled about treatment plan, medications, possible side effects, patientverbalized understanding. All questions were answered to the best of my ability. This discharge took greater then 30 minutes in planning, reviewing documentation, counseling the patient, and discussing with other team members." ASSESSMENT ASSESSMENT Assessment Colitis Date of Service: Dec 23, 2024 Billing Provider: BRANDON SHAH MD Common Visit Codes: [id number] DISCH DAY >30min BRANDON SHAH MD Dec 23, 2024 11:43
[2024-12-23 13:00] VITALS: BP 108/68; PULSE 73; RESP 17; TEMP 97.9; O2SAT 98
[2024-12-23 14:52] VITALS: BP 108/68; PULSE 73; RESP 17; TEMP 97.9; O2SAT 98
== END 2024-12-23 15:19 | disposition home or self-care (01) | DRG 391 ==
LOC: ER 15:40 → OVERFLOW 18:54 → CENTRAL 22:50
PROVIDERS: ADMIT Internal Medicine; ATTEND Internal Medicine
DX: K52.9 Noninfective gastroenteritis and colitis, unspecified (principal); N17.0 Acute kidney failure with tubular necrosis; N30.00 Acute cystitis without hematuria; E66.9 Obesity, unspecified; Z79.2 Long term (current) use of antibiotics; Z90.49 Acquired absence of other specified parts of digestive tract; Z68.36 Body mass index [BMI] 36.0-36.9, adult; Z79.899 Other long term (current) drug therapy
CPT/HCPCS: 36415; 70450; 74176; 80048; 80053; 81001; 81025; 85025; 85048; 87040; 87045; 87086; 87427; 87493; 96365; 96375; G0378; J2405; J2470; J3490